=== PATIENT | female | born 1980 | race Caucasian/White ===

== ENCOUNTER 2019-06-29 11:45 | Day surgery (SDC) | payer OTHER ==
[2019-06-29] MEDS ORDERED: DIPHENHYDRAMINE 25 MG TAB/CAP ONE (12:26)
[2019-06-29 13:09] LABS: Absolute Lymphocytes (CBC) 3.3 K/uL (0.7-4.9); Basophils % 0.8 % (0-1.3); Lymphocytes % 33.6 % (15.3-44.8); MPV 8.9 fL (7.6-11.3); RBC Red Blood Cell Count 3.71 M/uL (3.86-4.86)
[2019-06-29] MEDS ORDERED: NA CHLORIDE 0.9% 250 ML ONE (13:32)
[2019-06-29 15:26] VITALS: BP 99/57; TEMP 98.2; O2SAT 98
[2019-06-29 16:05] VITALS: BMI 42.5
[2019-06-29] MEDS ORDERED: HEPARIN 500 UNIT/5 ML SYR IV ONE (17:25)
[2019-06-29 18:07] LABS: Hematocrit 27.9 % (36.0-45.0)
[2019-06-29 19:22] LABS: Urine White Blood Cell Casts OK
[2019-06-29 19:23] LABS: Anisocytosis 2+; Blood Morphology Comment NOTED (NOT SEEN); Hypochromasia 1+; Platelet Estimate ADEQ; Polychromasia 1+
== END 2019-06-29 17:50 | disposition home or self-care (01) ==
LOC: DS 11:45
PROVIDERS: ATTEND Internal Medicine Gastroenterology
DX: D64.9 Anemia, unspecified (principal); R42 Dizziness and giddiness; I10 Essential (primary) hypertension; F41.1 Generalized anxiety disorder; R63.0 Anorexia; K29.60 Other gastritis without bleeding; K21.0 Gastro-esophageal reflux disease with esophagitis; R19.7 Diarrhea, unspecified; K92.1 Melena; R14.0 Abdominal distension (gaseous); R11.0 Nausea; R12 Heartburn; K64.9 Unspecified hemorrhoids; Z01.810 Encounter for preprocedural cardiovascular examination; Z01.812 Encounter for preprocedural laboratory examination
CPT/HCPCS: 85025; 36415; 86900; 86850; 86901; 85018; 85014; 36430; J1642; P9016; J7030